=== PATIENT | male | born 1965 | race Caucasian/White ===

== ENCOUNTER 2018-03-27 14:52 | Emergency (ER) | payer SELFPAY ==
[2018-03-27 16:16] VITALS: BP 132/74
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
== END 2018-03-27 16:15 | disposition home or self-care (01) ==
LOC: ED 14:52
DX: S40.812A Abrasion of left upper arm, initial encounter (principal); V43.52XA Car driver injured in collision with other type car in traffic accident, initial encounter; Y93.89 Activity, other specified; Y92.410 Unspecified street and highway as the place of occurrence of the external cause; Z87.891 Personal history of nicotine dependence
CPT/HCPCS: 99281